=== PATIENT | female | born 1960 | race Caucasian/White ===

== ENCOUNTER 2017-01-03 16:00 | Emergency (ER) | payer OTHER ==
[~2017-01-03] VITALS: Ht 165.1 cm; Wt 57.3 kg
[2017-01-03 16:02] VITALS: BP 123/80
[2017-01-03] MEDS ORDERED: HYDROcodone/APAP 5/325 TABLET ONE (16:58)
[2017-01-03] MEDS ORDERED: HYDROcodone/APAP 5/325 TABLET PO ONE (17:00)
== END 2017-01-03 18:18 | disposition home or self-care (01) ==
LOC: ED 18:13
DX: S52.501A Unspecified fracture of the lower end of right radius, initial encounter for closed fracture (principal); S52.502A Unspecified fracture of the lower end of left radius, initial encounter for closed fracture; V00.121A Fall from non-in-line roller-skates, initial encounter; Y93.51 Activity, roller skating (inline) and skateboarding; Y92.89 Other specified places as the place of occurrence of the external cause; Y99.8 Other external cause status
CPT/HCPCS: 29125; 99284

== ENCOUNTER → 2017-07-04 | Outpatient (CLI) | payer MEDICAID ==
[~2017-07-04] MED LIST: ALBU8.5H8 INH; ASPI-650 PO; BUPIVACAINE/PF 0.25% ONE; FENTANYL PF 100 MCG/2ML ONE; LIDOCAINE 2%, 10ML ONE; LIDOCAINE-MPF 1%, 2ML ONE; MIDAZOLAM 1 MG/ML, 2ML ONE; PROPOFOL 10 MG/ML, 20ML ONE; SUCCINYLCHOLINE 20 MG/ML, 10ML ONE
== END ==
LOC: STAR 13:29
PROVIDERS: ATTEND Orthopaedic Surgery
DX: Z02.9 Encounter for administrative examinations, unspecified (principal)

== ENCOUNTER 2017-07-10 07:27 | Day surgery (SDC) | payer MEDICAID ==
[~2017-07-10] VITALS: Ht 166.4 cm; Wt 57.0 kg
[~2017-07-10 07:27] MED LIST changes: -BUPIVACAINE/PF 0.25% ONE; -FENTANYL PF 100 MCG/2ML ONE; -LIDOCAINE 2%, 10ML ONE; -LIDOCAINE-MPF 1%, 2ML ONE; -MIDAZOLAM 1 MG/ML, 2ML ONE; -PROPOFOL 10 MG/ML, 20ML ONE; -SUCCINYLCHOLINE 20 MG/ML, 10ML ONE
[2017-07-10 08:05] VITALS: BP 112/75
[2017-07-10] MEDS ORDERED: LACTATED RINGERS 1,000 ML IV SCH (08:08)
[2017-07-10] MEDS ORDERED: LIDOCAINE-MPF 1%, 2ML INFIL ONE (08:30)
[2017-07-10] MEDS ORDERED: CEFAZOLIN 1,000 MG ONE (10:26)
[2017-07-10] MEDS ORDERED: PROPOFOL 10 MG/ML, 20ML ONE (10:26)
[2017-07-10] MEDS ORDERED: PROMETHAZINE 25 MG/ML, 1ML IV PRN (11:00)
[2017-07-10] MEDS ORDERED: LORazepam 2 MG/ML, 1ML IVPush PRN (11:00)
[2017-07-10] MEDS ORDERED: morphine SULFATE 10 MG/ML, 1ML IV PRN (11:00)
[2017-07-10] MEDS ORDERED: HYDROcodone/APAP 7.5-325MG/15ML UDC PO PRN (11:00)
[2017-07-10] MEDS ORDERED: FENTANYL PF 100 MCG/2ML IV PRN (11:00)
[2017-07-10] MEDS ORDERED: ACETAMINOPHEN 325 MG TABLET PO PRN (11:00)
[2017-07-10] MEDS ORDERED: OXYcodone 5 MG/5 ML ORAL.SOL UDC PO PRN (11:00)
[2017-07-10] MEDS ORDERED: MEPERIDINE/PF 25MG/0.5ML IVPush PRN (11:00)
[2017-07-10] MEDS ORDERED: ONDANSETRON 2MG/ML, 2ML IVPush PRN (11:00)
== END 2017-07-10 15:20 ==
LOC: OUT 07:27
PROVIDERS: ATTEND Orthopaedic Surgery
DX: S52.592A Other fractures of lower end of left radius, initial encounter for closed fracture (principal); J44.9 Chronic obstructive pulmonary disease, unspecified; W19.XXXA Unspecified fall, initial encounter; Y93.89 Activity, other specified; Y92.89 Other specified places as the place of occurrence of the external cause; Y99.8 Other external cause status
CPT/HCPCS: 25400; 73100; 76001; C1713; C1762; C1776; J0690; J2704; J3490; J7120